=== PATIENT | male | born 1960 | race Caucasian/White ===

== ENCOUNTER 2022-09-06 18:59 | Inpatient (IN) | payer OTHER, SELFPAY ==
[2022-09-06 19:08] VITALS: BP 132/77; PULSE 103; RESP 20; TEMP 36.2; O2SAT 97; BMI 38.0
--- NOTE | 2022-09-06 19:38 | XRR_ITS ---
PROCEDURE INFORMATION: Exam: XR Chest Exam date and time: 09/06/2022 8:26 PM Age: 62 years old Clinical indication: Other: General weakness TECHNIQUE: Imaging protocol: Radiologic exam of the chest. Views: 1 view. COMPARISON: No relevant prior studies available. FINDINGS: Lungs: Unremarkable. No consolidation. Pleural spaces: Unremarkable. No pleural effusion. No pneumothorax. Heart/Mediastinum: Unremarkable. No cardiomegaly. Bones/joints: Unremarkable. XR/XR chest 1V portable [id number] IMPRESSION: No acute findings.
--- NOTE | 2022-09-06 20:14 | CTR_ITS ---
PROCEDURE INFORMATION: Exam: CT Lumbar Spine With Contrast Exam date and time: 09/06/2022 9:29 PM Age: 62 years old Clinical indication: Numbness; Patient HX: C/O low back pain with bilateral lower ext. Weakness. TECHNIQUE: Imaging protocol: Computed tomography of the lumbar spine with contrast. Radiation optimization: All CT scans at this facility use at least one of these dose optimization techniques: automated exposure control; mA and/or kV adjustment per patient size (includes targeted exams where dose is matched to clinical indication); or iterative reconstruction. Contrast material: OMNI 350; Contrast volume: 100 ml; Contrast route: INTRAVENOUS (IV); COMPARISON: CR XR lumbar spine 2-3V* [id number] 09/02/2022 12:02 PM RADIATION DOSE METRICS: Total DLP (mGy-cm): 1310.56 FINDINGS: Bones/joints: L4 vertebral body subtle lucent bony lesions suspected, consider further evaluation with a MRI or nuclear medicine bone scan to assess for an underlying bony lesion, finding best seen series 8, image 43. L1-L2: No significant disc protrusion. No severe spinal canal stenosis. No significant neural foraminal narrowing. L2-L3: No significant disc protrusion. No severe spinal canal stenosis. No significant neural foraminal narrowing. L3-L4: L3-L4 broad-based disc bulge with severe spinal canal and moderate bilateral foraminal. L4-L5: L4-L5 broad-based disc bulge with severe spinal canal and moderate bilateral foraminal narrowing. L5-S1: L5/S1 grade 1 retrolisthesis of L5 relative to S1 of 6 mm with a broad-based disc bulge resulting in mild spinal canal and moderate bilateral foraminal narrowing. Soft tissues: Unremarkable. CT/CT lumbar spine w con [id number] IMPRESSION: 1. L4 vertebral body subtle lucent bony lesions suspected, consider further evaluation with a MRI or nuclear medicine bone scan to assess for an underlying bony lesion, finding best seen series 8, image 43. 2. L3-L4 broad-based disc bulge with severe spinal canal and moderate bilateral foraminal. 3. L4-L5 broad-based disc bulge with severe spinal canal and moderate bilateral foraminal narrowing. 4. L5/S1 grade 1 retrolisthesis of L5 relative to S1 of 6 mm with a broad-based disc bulge resulting in mild spinal canal and moderate bilateral foraminal narrowing.
--- NOTE | 2022-09-06 20:16 | ED_ITS ---
HPI - Weakness General: Chief complaint: Weakness Stated complaint: Leg Pain\Kidneys Sent from [facility] Time Seen by Provider: 09/06/22 19:38 Source: patient Mode of arrival: ambulatory Limitations: no limitations History of Present Illness: 62-year-old male states that he has been having some muscle spasms right lower back over the last 4 to 5 days he states he was prescribed muscle relaxers is not sure what most flexors the last 3 to 4 days he states that over the last 4 days he has had progression all weakness of his lower extremities he states he is having a very hard time ambulating today due to that weakness he denies any decreased sensation denies any injuries denies any severe back pain denies any fevers. Associated symptoms: Denies chest pain, chills, dysuria, easy bruising, fever(s), headache(s), nausea or vomiting Review of Systems Const: Denies: fever(s), chills, body aches or change in appetite Eyes: Denies: blurry vision or eye discomfort ENMT: Denies: throat pain or dental pain Card: Denies: chest pain Resp: Denies: dyspnea GI: Denies: abdominal pain, nausea, vomiting or diarrhea : Denies: dysuria Musc: Reports: muscle weakness Skin/Breast: Denies: rash Neuro: Denies: headache(s) Psych: Denies: depression González/Lymph: Denies: easy bruising All/Imm: Denies: urticaria PFSH ED PFSH: Medical History (Updated 09/07/22 @ 01:30 by Declan Holt MD) Diabetes Social History (Updated 09/06/22 @ 20:17 by Declan Holt MD) Smoking and tobacco status: never smoked Alcohol intake: never Substance/Drug Use: never Physical Exam Const: COMMON NORMALS: no acute distress, patient oriented x3 and healthy appearing HENMT: COMMON NORMALS: normocephalic and atraumatic HEAD & SCALP: normocephalic and atraumatic Eye: COMMON NORMALS: Equal, round and reactive pupils present and EOMs intact bilaterally PUPIL: Yes Equal, round and reactive pupils present Neck/C-Spine: COMMON NORMALS: full ROM and supple Chest: COMMONS NORMALS: normal inspection of the chest and normal palpation of entire chest wall Resp: COMMON NORMALS: normal respiratory effort, No retractions, No use of accessory muscles and clear to auscultation bilaterally AUSCULTATION: clear to auscultation bilaterally Cardio: COMMON NORMALS: regular rate, regular rhythm and No murmurs present (Cardio) RATE: regular rate RHYTHM: regular rhythm GI: COMMON NORMALS: Normal to inspection, nondistended, normoactive bowel sounds present, Soft to palpation, non-tender and no masses PALPATION: Yes Soft to palpation : COMMON NORMALS: Yes no CVA tenderness BLADDER/KIDNEY EXAM: Yes no CVA tenderness Back/Pelvis: COMMON NORMALS: no CVA tenderness and thoracic and lumbar spine normal to inspection Extremity: COMMON NORMALS: normal to inspection and full ROM Neuro: COMMON NORMALS: patient oriented x3 OTHER: Decrease ankle jerk and patellar reflexes bilaterally he is having difficulty walking due to weakness as well Psych: COMMON NORMALS: mental status grossly normal, Normal thought process present and cooperative THOUGHT PROCESS: Normal thought process present Skin: COMMON NORMALS: no rashes or lesions noted and no wounds GENERAL SKIN EXAM: no rashes or lesions noted Course Vital Signs: Vital signs: Vital Signs Temperature 97.2 F L 09/06/22 19:08 Pulse Rate 121 H 09/06/22 21:23 Respiratory Rate 20 H 09/06/22 19:08 Blood Pressure 133/99 09/06/22 21:23 Pulse Oximetry 98 09/06/22 21:23 Oxygen Delivery Me thod 09/06/22 21:23 Oxygen Flow Rate 2 09/06/22 21:23 MDM - Weakness Medical Decision Making Patient presents here with bilateral lower extremity weakness he is having some difficulty walking does have decreased reflexes well MRI of his T and L-spine showed no acute cord compression 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 Lab Data 09/06/22 20:20 09/06/22 20:20 Radiology Impressions Chest X-Ray 09/06/22 19:38 IMPRESSION: No acute findings. Lumbar Spine CT 09/06/22 20:14 IMPRESSION: 1. L4 vertebral body subtle lucent bony lesions suspected, consider further evaluation with a MRI or nuclear medicine bone scan to assess for an underlying bony lesion, finding best seen series 8, image 43. 2. L3-L4 broad-based disc bulge with severe spinal canal and moderate bilateral foraminal. 3. L4-L5 broad-based disc bulge with severe spinal canal and moderate bilateral foraminal narrowing. 4. L5/S1 grade 1 retrolisthesis of L5 relative to S1 of 6 mm with a broad-based disc bulge resulting in mild spinal canal and moderate bilateral foraminal narrowing. Lumbar Spine MRI 09/06/22 22:00 IMPRESSION: Marked spinal canal narrowing at L3-L4 due to degenerative changes. Small chronic appearing central disc protrusion at L5-S1 contacts left S1 nerve root at its exit from thecal sac. Hemangioma of L4 vertebral body. Thoracic Spine MRI 09/06/22 22:00 IMPRESSION: No spinal canal compromise in thoracic spine. Canal narrowing from chronic factors is suggested in the upper cervical spine and may be marked but is not fully evaluated on this exam. Laboratory Results WBC 8.8 10^3/uL (4.0-10.0) 09/06/22 20:20 RBC 5.66 10^6/uL (4.1-5.3) H 09/06/22 20:20 Hgb 15.8 g/dL (11.7-16.6) 09/06/22 20:20 Hct 48.1 % (42.0-52.0) 09/06/22 20:20 MCV 85.0 fl (80-94) 09/06/22 20:20 MCH 27.9 pg (28.0-34.0) L 09/06/22 20:20 MCHC 32.8 g/dL (30.0-36.0) 09/06/22 20:20 RDW 13.1 % (12.1-15.1) 09/06/22 20:20 Plt Count 303 10^3/cmm (130-400) 09/06/22 20:20 MPV 10.2 fL (7.4-10.4) 09/06/22 20:20 Neut % (Auto) 64.1 % 09/06/22 20:20 Lymph % (Auto) 26.1 % 09/06/22 20:20 [place] % (Auto) 8.1 % 09/06/22 20:20 Eos % (Auto) 0.6 % 09/06/22 20:20 Baso % (Auto) 0.8 % 09/06/22 20:20 Neut # (Auto) 5.62 10^3/uL (1.8-7.7) 09/06/22 20:20 Lymph # (Auto) 2.3 10^3/uL (0.8-4.8) 09/06/22 20:20 [place] # (Auto) 0.7 10^3/uL (0.2-0.9) 09/06/22 20:20 Eos # (Auto) 0.1 10^3/uL (0.0-0.8) 09/06/22 20:20 Baso # (Auto) 0.1 10^3/uL (0.0-0.1) 09/06/22 20:20 Nucleated RBC % (auto) 0 % 09/06/22 20:20 Nucleated RBCs # 0.0 /100WBC 09/06/22 20:20 ESR 11 mm/hr (0-10) H 09/06/22 20:20 PT 13.00 SECONDS (12.1-14.9) 09/06/22 20:20 INR 0.95 (0.8-1.2) 09/06/22 20:20 Sodium 137 mmol/L (136-145) 09/06/22 20:20 Potassium 4.5 mmol/L (3.5-5.1) 09/06/22 20:20 Chloride 97 mmol/L (98-107) L 09/06/22 20:20 Carbon Dioxide 25 mmol/L (22-29) 09/06/22 20:20 Anion Gap 19.5 (5-19) H 09/06/22 20:20 BUN 16 mg/dL (8-23) 09/06/22 20:20 Creatinine 0.7 mg/dL (0.7-1.2) 09/06/22 20:20 GFR Calculation 115.0 mL/min (90-130) 09/06/22 20:20 Glucose 296 mg/dL (65-115) H 09/06/22 20:20 Calculated Osmolality 296 mOsm/kg (285-295) H 09/06/22 20:20 Calcium 10.5 mg/dL (8.5-10.5) 09/06/22 20:20 Magnesium 2.0 mg/dL (1.7-2.3) 09/06/22 20:20 Total Bilirubin 0.9 mg/dL (0.15-1.2) 09/06/22 20:20 AST 18 U/L (0-40) 09/06/22 20:20 ALT 21 U/L (0-41) 09/06/22 20:20 Alkaline Phosphatase 121 U/L (40-130) 09/06/22 20:20 C-Reactive Protein 3.0 mg/L (0.0-4.9) 09/06/22 20:20 NT-Pro-B Natriuret Pep 198 pg/mL (0-125) H 09/06/22 20:20 Total Protein 8.1 g/dL (6.6-8.7) 09/06/22 20:20 Albumin 4.7 g/dL (3.5-5.2) 09/06/22 20:20 Globulin 3.4 g/dL (1.3-4.6) 09/06/22 20:20 Lipase 33 U/L (13-60) 09/06/22 20:20 TSH 3.81 uIU/mL (0.27-4.20) 09/06/22 20:20 Urine Color Yellow (Yellow) 09/06/22 22:10 Urine Appearance Clear (CLEAR) 09/06/22 22:10 Urine pH 5 (5-7) 09/06/22 22:10 Ur Specific [place] 1.015 (1.005-1.030) 09/06/22 22:10 Urine Protein 1+ (Negative) H 09/06/22 22:10 Urine Glucose (UA) 4+ (Normal) H 09/06/22 22:10 Urine Ketones 1+ (Negative) H 09/06/22 22:10 Urine Blood Neg (Negative) 09/06/22 22:10 Urine Nitrate Negative (Negative) 09/06/22 22:10 Urine Bilirubin Neg (Negative) 09/06/22 22:10 Urine Urobilinogen Norm mg/dL (Negative) 09/06/22 22:10 Ur Leukocyte Esterase Negative (Negative) 09/06/22 22:10 Urine RBC 0-4 /hpf (0-2) H 09/06/22 22:10 Urine WBC 0-4 /hpf (0-5) H 09/06/22 22:10 Ur Squamous Epith Cells 0-4 /hpf (0-5) H 09/06/22 22:10 Ur Transition Epith Cell 0-4 /hpf 09/06/22 22:10 Amorphous Sediment 1+ /hpf 09/06/22 22:10 Urine Bacteria None /hpf (NONE) 09/06/22 22:10 Hyaline Casts 0-4 /lpf H 09/06/22 22:10 Urine Mucus 1+ /hpf 09/06/22 22:10 EKG Data EKG 1: I personally reviewed and interpreted this EKG as follows: EKG interpretation date: 09/06/22 EKG interpretation time: 21:05 Interpretation: nsr hr [address] or t wave abnormalities qrs 78 qtc 414 Discharge Plan Discharge Patient Disposition: Admitted As Inpatient Clinical Impression: Bilateral leg weakness Coding Level of Care Code ED Sulfonation Equipment Operator for Chg Fwd Exam Comprehensive
[2022-09-06 20:38] LABS: Basophils # 0.1 10^3/uL (0.0-0.1); Basophils % 0.8 %; Eosinophils # 0.1 10^3/uL (0.0-0.8); Eosinophils % 0.6 %; Hematocrit 48.1 % (42.0-52.0); Hemoglobin 15.8 g/dL (11.7-16.6); Lymphocytes # 2.3 10^3/uL (0.8-4.8); Lymphocytes % 26.1 %; Mean Corpuscular HGB Conc 32.8 g/dL (30.0-36.0); Mean Corpuscular Hemoglobin 27.9 pg (28.0-34.0); Mean Platelet Volume 10.2 fL (7.4-10.4); Monocytes # 0.7 10^3/uL (0.2-0.9); Monocytes % 8.1 %; Neutrophils # 5.62 10^3/uL (1.8-7.7); Neutrophils % 64.1 %; Nucleated Red Blood Cells % 0 %; Platelet Count 303 10^3/cmm (130-400); Red Blood Count 5.66 10^6/uL (4.1-5.3); Red Cell Distribution Width 13.1 % (12.1-15.1); White Blood Count 8.8 10^3/uL (4.0-10.0)
[2022-09-06 20:52] LABS: INR 0.95 (0.8-1.2)
--- NOTE | 2022-09-06 21:05 | ECG_ITS ---
[facility] Test Date: 2022-09-06 Pat Name: Narayan Nicholas Department: Room: Gender: Male [employer]er: : 1960 Requested By: Declan Holt Order Number: [id number] Benton MD: Andrés Hendricks M.D. Measurements Intervals [place] Rate: 89 P: 57 SD: 173 QRS: -27 QRSD: 78 T: 102 QT: 367 QTc: 448 Interpretive Statements SINUS RHYTHM INFERIOR MYOCARDIAL INFARCTION , PROBABLY OLD [40+ ms Q WAVE AND/OR ST/T ABNORMALITY IN II/aVF] No previous ECG available for comparison Electronically Signed On 09-06-2022 21:35:23 HEAD NURSE by Andrés Hendricks M.D. [id number]
[2022-09-06 21:14] LABS: Alanine Aminotransferase 21 U/L (0-41); Albumin Level 4.7 g/dL (3.5-5.2); Alkaline Phosphatase 121 U/L (40-130); Anion Gap 19.5 (5-19); Aspartate Amino Transferase 18 U/L (0-40); Blood Urea Nitrogen 16 mg/dL (8-23); Calcium 10.5 mg/dL (8.5-10.5); Carbon Dioxide 25 mmol/L (22-29); Chloride 97 mmol/L (98-107); Globulin 3.4 g/dL (1.3-4.6); Glucose 296 mg/dL (65-115); Lipase 33 U/L (13-60); NT Pro B Type Natriuretic Pept 198 pg/mL (0-125); Osmolality Calculated 296 mOsm/kg (285-295); Potassium 4.5 mmol/L (3.5-5.1); Sodium 137 mmol/L (136-145); Thyroid Stimulating Hormone 3.81 uIU/mL (0.27-4.20); Total Bilirubin 0.9 mg/dL (0.15-1.2); Total Protein 8.1 g/dL (6.6-8.7)
[2022-09-06 21:18] LABS: Erythrocyte Sedimentation Rate 11 mm/hr (0-10)
[2022-09-06] MEDS: iohexol 350 mg/mL 500 mL Btl (per mL) IV (21:30)
--- NOTE | 2022-09-06 22:00 | MRR_ITS ---
PROCEDURE INFORMATION: Exam: MR Lumbar Spine Without and With Contrast. Exam date and time: 09/06/2022 11:15 PM Age: 62 years old Clinical indication: Low back pain; Additional info: Leg weakness TECHNIQUE: Imaging protocol: Magnetic resonance imaging of the lumbar spine without and with contrast. Contrast material: MULTIHANCE; Contrast volume: 20 ml; Contrast route: INTRAVENOUS (IV); COMPARISON: CT lumbar spine w con [id number] 09/06/2022 9:29 PM FINDINGS: Bones/joints: Diffuse disc bulge and posterior element degenerative changes result in marked spinal canal narrowing at L3-L4. Mild narrowing of lower right neural foramen at L3-L4. Marrow signal hyperintensity at L4 vertebral body is most consistent with hemangioma. Small chronic appearing central disc protrusion suggested at L5-S1; this finding contacts the left S1 nerve root. Mild narrowing of lower right L5-S1 neural foramen. Remaining levels show no significant spinal canal or neural foraminal narrowing. Spinal cord: Visualized cord, conus medullaris and cauda equina are unremarkable without compression. Soft tissues: Unremarkable. MR/MR lumbar spine wo/w con [id number] IMPRESSION: Marked spinal canal narrowing at L3-L4 due to degenerative changes. Small chronic appearing central disc protrusion at L5-S1 contacts left S1 nerve root at its exit from thecal sac. Hemangioma of L4 vertebral body.
--- NOTE | 2022-09-06 22:00 | MRR_ITS ---
PROCEDURE INFORMATION: Exam: MR Thoracic Spine Without Contrast Exam date and time: 09/06/2022 11:31 PM Age: 62 years old Clinical indication: Pain in thoracic spine; Additional info: Leg weakness TECHNIQUE: Imaging protocol: Magnetic resonance imaging of the thoracic spine without contrast. COMPARISON: MR lumbar spine wo/w con [id number] 09/06/2022 11:15 PM FINDINGS: Bones/joints: Spinal canal narrowing relating to chronic factors suggested within cervical spine at C3-C4 and C4-C5 is not fully evaluated on this exam but may be marked. Thoracic spine shows no significant spinal canal narrowing. Spinal cord caliber and signal are normal. No significant disc abnormalities. No suspicious marrow signal abnormalities. Spinal cord: See Bones/joints finding. Soft tissues: Unremarkable. MR/MR thoracic spin wo con* [id number] IMPRESSION: No spinal canal compromise in thoracic spine. Canal narrowing from chronic factors is suggested in the upper cervical spine and may be marked but is not fully evaluated on this exam.
[2022-09-06 22:58] LABS: Add Urine Microscopic? YES; Bilirubin Urine Neg (Negative); Blood Urine Neg (Negative); Glucose Urine UA 4+ (Normal); Ketones Urine 1+ (Negative); Leukocyte Esterase Urine Negative (Negative); Nitrate Urine Negative (Negative); Protein Urine 1+ (Negative); Specific Gravity, Urine 1.015 (1.005-1.030); Urine Appearance Clear (CLEAR); Urine Color Yellow (Yellow); Urobilinogen Urine Norm (Negative); pH Urine 5 (5-7)
[2022-09-06 22:59] LABS: Add Urine Culture? No; Amorphous Sediment Urine 1+ /hpf; Hyaline Casts Urine 0-4 /lpf; Mucus Urine 1+ /hpf; RBC Urine 0-4 /hpf (0-2); Squamous Epithelial Cell Urine 0-4 /hpf (0-5); Transitional Epi Cells Urine 0-4 /hpf; WBC Urine 0-4 /hpf (0-5)
[2022-09-07] VITALS (12 sets, daily range): BP systolic 115–163; BP diastolic 69–93; PULSE 91–95; RESP 16–20; TEMP 36.4–36.5; O2SAT 93–99; BMI 38.0
--- NOTE | 2022-09-07 02:22 | P.HP_ITS ---
Providers/Chief Complaint Admitting Physician: Joe Delaney MD Primary Care Provider: Jerrica Velarde Chief Complaint: Leg Pain\Kidneys Sent from [facility] History of Present Illness Narayan Nicholas is a 62 year old male with a past medical history of diabetic peripheral neuropathy, [id number] type 2 diabetes mellitus, currently not on any medications, who presents [facility] for bilateral lower extremity weakness. Patient tells me that he has type 2 diabetes mellitus, he has not taken glipizide Ozempic and metformin in a long time due to adverse side effects, he checks his blood sugars he tells me that honestly that they have been in the 200s to 300s, he does have diabetic peripheral neuropathy, no history of CAD no history of strokes, no history of COPD. He tells me that roughly 3 weeks ago he fell on his back, and since then he has had some lower back pain, but on Monday the pain became much more severe so he presented to [facility], and he was given medications which sound like steroids, to help with the pain. However he tells me that starting immediately on Monday he started to notice that he had weakness in both his feet, trouble coordinating, which progressively got worse and was ascending from his feet, to his calves, so much so that he had trouble walking, trouble coordinating, high risk of falls. Denies any shortness of breath, no fevers, no chills, no recent illness, he did have COVID back in December. Currently he is telling me that he has loss of strength in both his feet, and his lower legs, he cannot walk, he has trouble coordinating and this is just suddenly abnormal as he is fairly functional. Currently he denies any low back pain radiating to his lower back, no sciatic related pain, he chronically has paresthesias and numbness of both his feet this is from his diabetic peripheral neuropathy. However he did report that in the last few days his neuropathy has worsened and he has more numbness, his big concern is I cannot walk anymore, he is tachycardic, but no lightheadedness, dizziness, no chest pain Review of Systems Const: Denies: fever(s), chills, fatigue or malaise Eyes: Denies: change in vision or blurry vision ENMT: Denies: nasal congestion Card: Denies: chest pain or palpitations Resp: Denies: dyspnea, productive cough, non-productive cough or wheezing GI: Denies: abdominal pain, nausea, vomiting, hematemesis, diarrhea, constipation, hematochezia or melena : Denies: flank pain, difficulty urinating, dysuria or urinary frequency Musc: Denies: neck pain or back pain Skin/Breast: Denies: rash Neuro: Reports: numbness in extremities, weakness in extremities and difficulty walking; Denies: headache(s), dizziness, vertigo, confusion, difficulty communicating thoughts, seizure-like activity or involuntary movements Psych: Denies: anxiety or depression Endo: Denies: polyuria or polydipsia PFSH Acute PFSH: Medical History (Updated 09/07/22 @ 02:33 by Joe Delaney MD) Diabetes Surgical History (Updated 09/07/22 @ 02:28 by Joe Delaney MD) No pertinent past surgical history Family History (Updated 09/07/22 @ 02:28 by Joe Delaney MD) Other Diabetes Social History (Updated 09/06/22 @ 20:17 by Declan Holt MD) Smoking and tobacco status: never smoked Alcohol intake: never Substance/Drug Use: never Vitals/I&O/Wt Last Vital Signs Temp 97.2 F L 09/06/22 19:08 Pulse 121 H 09/06/22 21:23 Resp 20 H 09/06/22 19:08 BP 133/99 09/06/22 21:23 Pulse Ox 98 09/06/22 21:23 O2 Del Method 09/06/22 21:23 O2 Flow Rate 2 09/06/22 21:23 Weight last 48 hrs Weight 127.006 kg Physical Exam Const: COMMON NORMALS: no acute distress and patient oriented x3 HENMT: COMMON NORMALS: normocephalic HEAD & SCALP: normocephalic Eye: COMMON NORMALS: Equal, round and reactive pupils present and EOMs intact bilaterally Neck/C-Spine: COMMON NORMALS: no JVD Resp: COMMON NORMALS: normal respiratory effort, No retractions, No use of accessory muscles and clear to auscultation bilaterally AUSCULTATION: clear to auscultation bilaterally Cardio: COMMON NORMALS: no JVD, regular rate, regular rhythm, S1 normal heart sound present and S2 normal heart sound present RATE: regular rate RHYTHM: regular rhythm HEART SOUNDS: S1 normal heart sound present and S2 normal heart sound present GI: COMMON NORMALS: Normal to inspection, nondistended, normoactive bowel sounds present, Soft to palpation, non-tender, No hepatosplenomegaly present, no masses and no bruits PALPATION: Yes Soft to palpation and Yes No hepatosplenomegaly present Extremity: COMMON NORMALS: no calf tenderness and no pedal edema OTHER: On exam patient, right foot and left foot, strength significantly diminished, 2 out of 5, trouble coordinating, ankle jerk reflex not present, bilateral knee jerk reflex not present, bilateral thumb and elbow jerk reflexes present, no trouble breathing Neuro: COMMON NORMALS: patient oriented x3, CN's II-XII intact bilaterally and moves all extremities Psych: COMMON NORMALS: mental status grossly normal Data 09/06/22 20:20 09/06/22 20:20 A&P Assessment and plan (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 L4 vertebral body subtle lucent bony lesions suspected, consider further evaluation with a MRI or nuclear medicine bone scan to assess for an underlying bony lesion, finding best seen series 8, image 43. 2. L3-L4 broad-based disc bulge with severe spinal canal and moderate bilateral foraminal. 3. L4-L5 broad-based disc bulge with severe spinal canal and moderate bilateral foraminal narrowing. 4. L5/S1 grade 1 retrolisthesis of L5 relative to S1 of 6 mm with a broad-based disc bulge resulting in mild spinal canal and moderate bilateral foraminal narrowing. mri lumbar spine Marked spinal canal narrowing at L3-L4 due to degenerative changes. Small chronic appearing central disc protrusion at L5-S1 contacts left S1 nerve root at its exit from thecal sac.? Hemangioma of L4 vertebral body. mri thoracic spine No spinal canal compromise in thoracic spine. Canal narrowing from chronic factors is suggested in the upper cervical spine and may be marked but is not fully evaluated on this exam. -Certainly patient is lumbar disc disease could be playing a role however given the rapidly progressive features, inability to walk, highly suspicious Plan -Given the rapidly progressive features I would recommend to start IVIG immediately -However I was informed by our pharmacy that we do not have more than 20 gm of IVIG that includes Octagam and guamanix, and they are not exactly sure when ready to get another shipment -We cannot delay treatment, so I recommended ER provider for patient to be transferred to tertiary level center -If he is here until early a.m., we can find out when we can get another shipment if transfer is delayed -We will continue to monitor him closely in the emergency room -CSF lumbar puncture also ordered with CSF studies if he is here, antibodies ordered -I started him on a low-dose sliding scale -A1c ordered -Full code -SCDs for DVT prophylaxis Lovenox currently on hold for potential CSF sampling Attestations Medical Necessity Statement*: Patient requires hospitalization for Guillain- Buchanan? 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
[2022-09-07] MEDS: pantoprazole 40 mg SDV IVP (03:41)
[2022-09-07 04:06] LABS: Estmated Average Glucose 286; Hemoglobin A1C 11.6 % (4.0-6.0)
--- NOTE | 2022-09-07 08:07 | PM.CONSULT ---
Providers/Reason For Consult Consulting Physician/Specialty*: Dr. Holt/ER Reason for Consult*: patrick steve Attending Physician: Glenn Rocha Primary Care Provider: Jerrica Velarde History of Present Illness History of Present Illness Narayan Nicholas is a 62 year old man who came to the emergency department yesterday evening complaining of muscle spasms in his back and weakness in his legs to the point that he was having gait impairment by the time he arrived. Dr. Holt found that he had no reflexes in his legs and no sensory disturbance so we agreed there was a high chance of acute a sending polyneuropathy and that the patient should be admitted. Dr. Holt obtained MRI of the lumbosacral spine and thoracic spine emergently after lumbar spine CT suggested possible lytic lesions. The lesion proved to be a hemangioma by MRI. There was severe spinal stenosis at L3-4. Operations Specialists film suggested significant cervical stenosis and I question slight increase in T2 intensity in the cervical cord at C3-4 and C4-5. Dr. Delaney started the patient on IVIG at 2:00 this morning. I reviewed his MRI of the lumbar spine from 09/06/2022. There is near complete occlusion of the spinal canal at L3-4. 3 weeks ago he fell off of his porch. He fell backward and landed on a 2 x 6 board stretched across his low back, slightly eccentric to the right. He immediately had trouble walking, pain in his low back and his legs. On Monday the he went to [facility] and was given nonsteroidals and muscle relaxers which she took faithfully but by the following day he was having trouble moving his legs. Yesterday his intention was to go back to [facility] to get something else for his weakness but he fell in the yard. He fell at 10:30 in the morning and fell on his right side and had to crawl to the car. He denies any pain in his neck. He is a healthy person except that he is diabetic. He was not aware of any numbness in his legs.. Review of Systems Narrative: He has not been sick lately. No fever chills or cough. 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 Const: Denies: fever(s), chills or change in weight Eyes: Denies: change in vision ENMT: Denies: throat pain or disequilibrium Card: Denies: chest pain, palpitations, irregular heart rhythm or lightheadedness Resp: Denies: dyspnea, productive cough or non-productive cough GI: Denies: abdominal pain, nausea or vomiting : Denies: difficulty urinating, urinary frequency, urinary urgency, urinary hesitancy or difficulty starting urination Musc: Reports: back pain and extremity pain; Denies: extremity swelling Skin/Breast: Denies: rash Neuro: Reports: weakness in extremities, difficulty walking and frequent falls; Denies: numbness in extremities, sensory changes or seizure-like activity Psych: Denies: depression González/Lymph: Denies: easy bruising All/Imm: Denies: urticaria Medications/Allergies Home Medications Medication Instructions Recorded Confirmed Last Taken Type chlorzoxazone 500 mg tablet 250 mg PO TID PRN Muscle Spasm 09/07/22 09/07/22 Unknown History meloxicam 15 mg tablet 15 mg PO DAILY 09/07/22 09/07/22 Unknown History Allergies Allergy/AdvReac Type Severity Reaction Status Date / Time No Known Allergies Allergy Verified 09/07/22 08:55 Current Medications Generic Name Dose Route Start Last Admin Trade Name Freq PRN Reason Stop Dose Admin Immune Globulin 500 mls @ 0 mls/hr 09/07/22 03:15 09/07/22 03:50 Privigen IV 38 mls/hr Q24H LAKESHA Administration Protocol As Directed Pantoprazole Sodium 40 mg 09/07/22 02:22 09/07/22 03:41 Pantoprazole 40 Mg Sdv IVP 40 mg Q24H LAKESHA Administration PFSH Acute PFSH: Medical History Diabetes Surgical History No pertinent past surgical history Family History Other Diabetes Social History Smoking and tobacco status: never smoked Alcohol intake: never Substance/Drug Use: never Vitals/I&O/Wt Last Vital Signs Temp 97.2 F L 09/06/22 19:08 Pulse 95 09/07/22 07:10 Resp 16 09/07/22 07:10 BP 143/75 09/07/22 07:10 Pulse Ox 96 09/07/22 07:10 O2 Del Method 09/07/22 04:26 O2 Flow Rate 2 09/06/22 21:23 Weight last 48 hrs Weight 280 lb Physical Exam Narrative: GENERAL: The patient was well-nourished with a healthy appearance and appropriately groomed. MENTAL STATUS: Orientation was full to 10 of 10 questions of orientation. Speech was fluent without word hesitation. No difficulty following a complex command. The affect was euthymic. CRANIAL NERVES: Visual acuity was intact to reading small print. Visual dixon were full to confrontation, direct and consensual. Extraocular movements were full without nystagmus. Both slow pursuit and saccadic eye movements were normal. PERRLA. Face was symmetric at rest and with grimace. Facial sensation was intact in all three distributions of the fifth cranial nerve bilaterally to touch. Hearing was intact to soft spoken voice.. Tongue and palate were midline at rest and with protrusion of the tongue and elevation of the palate. Shoulders were symmetric at rest and with shoulder shrug. MOTOR: He was able to lift each of the legs off the bed and give at least 4 - strength in psoas on both sides. Quadriceps 4 out of 5, hamstrings 4 out of 5, dorsiflexion of the ankles 4 out of 5, plantar flexion 5 out of 5. SENSATION: He cannot perceive vibration at all at the knees or ankles. Pin sensation absent in the toes and the lateral aspect of the feet, reduced to the knees on both sides. COORDINATION: He cannot perform [id number] because of weakness. There were no specific cerebellar signs DEEP TENDON REFLEXES: 2+ in the upper extremities, absent at the knees and ankles GAIT: He is a large person and I did not attempt to take him for a walk. HEENT: Normocephalic without dysmorphic features. Conjunctivae were not injected and sclerae were nonicteric. NECK: Carotid upstroke was strong bilaterally without bruits. The thyroid was not enlarged and there were no palpable lymph nodes. CHEST: Clear to auscultation. CARDIOVASCULAR: The heart sounds were normal without murmur or gallop. Regular rate and rhythm. Peripheral pulses were 2+ in the dorsalis pedis. EXTREMITIES: There was no edema or cyanosis. The skin was unremarkable. The spine exhibited normal thoracic kyphosis and normal lumbar lordosis without deformities. Data 09/06/22 20:20 09/06/22 20:20 A&P Assessment and plan (1) Lumbar spinal stenosis: This 62-year-old diabetic developed the sudden onset of bilateral lower extremity weakness after he fell and landed on his back. He has near spinal occlusion at L3-4 with compression of all of the nerve roots accounting for his lower extremity weakness and loss of reflexes. He probably also has chronic diabetic peripheral neuropathy contributing to his a sending sensory loss and possibly also contributing to his loss of reflexes. His neuropathy would not explain his sudden onset of weakness after his fall 3 weeks ago or progressive worsening since then. In the presence of his structural lesion there is no reason for IVIG. We should explore his cervical spine to make sure he does not have impending cord compression as he has a pretty tight lesion in the cervical spine on foundry supervisor films. His images were reviewed with Dr. Bah. I talked with Dr. Rocha. I would also recommend canceling lumbar puncture which could result in spinal block. There is no reason to pursue MATEO, the host of antibodies that were ordered by Dr. Elam including the antibody for atypical Guillian Doran ganglioside GQ 1B antibody. (2) Cervical spinal stenosis: (3) Peripheral neuropathy: (4) Type 2 diabetes mellitus: Consult Attestations Time Spent in Patient Care: 90 minutes Coding Level of Care Code Acute Code for [facility] Fwd Diagnoses Lumbar spinal stenosis M48.061 Cervical spinal stenosis M48.02 Peripheral neuropathy G62.9 Type 2 diabetes mellitus E11.9
--- NOTE | 2022-09-07 08:52 | PC.PHAR ---
pt states he takes care of his own medications-pt states he had only been taking the 2 medications entered-pt states he use to take ozempic,metformin,lisinopril,zocor and glipizide but states he dced the meds pt states not taken for a year or so
--- NOTE | 2022-09-07 10:12 | MRR_ITS ---
PROCEDURE INFORMATION: Exam: MR Cervical Spine Without Contrast Exam date and time: 09/07/2022 4:39 PM Age: 62 years old Clinical indication: Pain; Cervicalgia; Additional info: Leg weakness TECHNIQUE: Imaging protocol: Magnetic resonance imaging of the cervical spine without contrast. COMPARISON: MR thoracic spin wo con* [id number] 09/06/2022 11:31 PM FINDINGS: Bones/joints: Vertebrae are intact without evidence of fracture. Spinal cord: There is mildly increased T2 signal in the cervical cord at the C3 and C4 levels which may represent some some myelomalacia. C2-C3: No significant disc disease. No significant spinal stenosis. C3-C4: Moderate to severe narrowing of the disc space. Diffuse posterior bulging of the disc with disc osteophyte complex causing severe central canal stenosis narrowing the sagittal diameter of the canal to 6 mm and flattening the cord. There is severe bilateral foraminal narrowing. C4-C5: Diffuse posterior bulging of the disc and disc osteophyte complex causing severe central canal stenosis narrowing the sagittal diameter canal to less than 6 mm and causing cord flattening. Uncovertebral hypertrophy causes severe bilateral foraminal narrowing. There is also some posterior ligamentous hypertrophy at this level. C5-C6: No significant disc disease. No significant spinal stenosis. C6-C7: No significant disc disease. No significant spinal stenosis. C7-T1: No significant disc disease. No significant spinal stenosis. Soft tissues: Unremarkable. Vasculature: Expected flow voids in the vertebral arteries. MR/MR cervical spin wo con* [id number] IMPRESSION: Severe spinal stenosis at C3-C4 and C4-C5 with evidence of myelomalacia.
--- NOTE | 2022-09-07 10:26 | P.CONIM_ITS ---
Providers/Reason For Consult Consulting Physician/Specialty*: Orthospine Reason for Consult*: Leg weakness Attending Physician: Glenn Rocha Primary Care Provider: Jerrica Velarde History of Present Illness History of Present Illness Narayan Nicholas is a 62 year old male whose had progressive weakness in both legs or is been complaining of the inability to walk a block because of his leg weakness. This has been progressing to a point where 3 weeks ago he fell off of his porch.? Following the fall his symptoms have progressed immediately had trouble walking, pain in his low back and his legs.? On Monday09/02/22 he went to [facility] and was given nonsteroidals and muscle relaxers but next day he was having trouble moving his legs.? He fell again in his yard which prompted him to follow-up at [facility]. He was evaluated in room 257 with physical therapy present who is mobilizing him around the room with a walker. Patient states this weakness is progressively intensified following the latest falls. Denies loss of bowel or bladder control. Describes aching in his back with numbness and weakness down his legs. Standing makes it much worse leaning forward gives him some temporary relief. He describes both legs bothering him equally. Review of Systems Narrative: He has not been sick lately. No fever chills or cough. 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 Const: Denies: fever(s), chills or change in weight Eyes: Denies: change in vision ENMT: Denies: throat pain or disequilibrium Card: Denies: chest pain, palpitations, irregular heart rhythm or lightheadedness Resp: Denies: dyspnea, productive cough or non-productive cough GI: Denies: abdominal pain, nausea or vomiting : Denies: difficulty urinating, urinary frequency, urinary urgency, urinary hesitancy or difficulty starting urination Musc: Reports: back pain and extremity pain; Denies: extremity swelling Skin/Breast: Denies: rash Neuro: Reports: weakness in extremities, difficulty walking and frequent falls; Denies: numbness in extremities, sensory changes or seizure-like activity Psych: Denies: depression González/Lymph: Denies: easy bruising All/Imm: Denies: urticaria Medications/Allergies Home Medications Medication Instructions Recorded Confirmed Last Taken Type chlorzoxazone 500 mg tablet 250 mg PO TID PRN Muscle Spasm 09/07/22 09/07/22 Unknown History meloxicam 15 mg tablet 15 mg PO DAILY 09/07/22 09/07/22 Unknown History Allergies Allergy/AdvReac Type Severity Reaction Status Date / Time No Known Allergies Allergy Verified 09/07/22 08:55 Current Medications Generic Name Dose Route Start Last Admin Trade Name Freq PRN Reason Stop Dose Admin Pantoprazole Sodium 40 mg 09/07/22 02:22 09/07/22 03:41 Pantoprazole 40 Mg Sdv IVP 40 mg Q24H LAKESHA Administration PFSH Acute PFSH: Medical History Diabetes Surgical History No pertinent past surgical history Family History Other Diabetes Social History Smoking and tobacco status: never smoked Alcohol intake: never Substance/Drug Use: never Vitals/I&O/Wt Last Vital Signs Temp 97.5 F L 09/07/22 08:00 Pulse 92 09/07/22 08:00 Resp 18 09/07/22 08:00 BP 137/79 09/07/22 08:00 Pulse Ox 97 09/07/22 08:00 O2 Del Method 09/07/22 08:00 O2 Flow Rate 2 09/06/22 21:23 09/06/22 09/07/22 09/07/22 22:59 06:59 14:59 Intake Total 600 / 600 Balance 600 / 600 Weight last 48 hrs Weight 280 lb Physical Exam Narrative: Patient is alert orient x3 has a good general appearance normal mood and affect. Patient presents with antalgic gait seeing a walker. Demonstrates raising up onto tiptoes with difficulty but is unable to raise up on his heels consistent with a bilateral foot drop as his both EHLs are weak. Exhibits normal coordination and normal stability. Moderate palpatory and percussion pain throughout the paraspinous musculature of the thoracolumbar spine. No obvious curvature in the forward bend test. Examination reveals normal alignment, decreased functional range of motion of the thoracolumbar spine with Flexion to 45 degrees, extends 15 degrees, laterally bends 10 degrees symmetrically. Decreased sensation light touch down both lower extremities with 4/5 motor strength throughout all motor groups. No palpable pain over the SI joints bilaterally. Negative Abelardo and Fabere sign. Negative straight leg raise bilaterally. Skin is clear warm with normal sensation to light touch, calves are supple with no medial thigh tenderness, negative Homans' sign. No palpable lymphadenopathy bilaterally. Reflexes are absent and symmetric about the knees and Achilles. Dorsalis pedis and posterior tibial pulses are 1+. No palpable edema bilaterally. HENMT: COMMON NORMALS: normocephalic and atraumatic HEAD & SCALP: normocephalic and atraumatic Resp: COMMON NORMALS: normal respiratory effort Cardio: COMMON NORMALS: regular rate and regular rhythm RATE: regular rate RHYTHM: regular rhythm GI: COMMON NORMALS: Soft to palpation and non-tender PALPATION: Yes Soft to palpation : COMMON NORMALS: Yes no CVA tenderness BLADDER/KIDNEY EXAM: Yes no CVA tenderness Back/Pelvis: COMMON NORMALS: no CVA tenderness Psych: COMMON NORMALS: mental status grossly normal and cooperative Data 09/06/22 20:20 09/06/22 20:20 MRI: Radiologist's impression: CCESSION #: [id number] MR/MR thoracic spin wo con* [id number] IMPRESSION: No spinal canal compromise in thoracic spine. Canal narrowing from chronic factors is suggested in the upper cervical spine and may be marked but is not fully evaluated on this exam MR/MR lumbar spine wo/w con [id number] IMPRESSION: Marked spinal canal narrowing at L3-L4 due to degenerative changes. Small chronic appearing central disc protrusion at L5-S1 contacts left S1 nerve root at its exit from thecal sac.? Hemangioma of L4 vertebral body. A&P Assessment and plan (1) Spinal stenosis, lumbar region, with neurogenic claudication: Discussed treatment options at length with him which involve going to the pain clinic for injections versus surgical decompression. Given the nature of his bilateral foot drop and the progression of his stenosis and inability to walk distances we discussed surgical decompression. Provide him with 10 mg IV Decadron now and upon discharge, I will provide a prednisone taper dose as well as tramadol 50 mg 1 tablet every 4-6 hours as needed pain we will have him follow-up in our office outpatient to discuss further treatment options. (2) Bilateral foot-drop: Coding Level of Care Code New Pt Acute Code for Chg Fwd Patient Type New History Detailed Exam Detailed Diagnoses Spinal stenosis, lumbar region, with neurogenic claudication M48.062 Bilateral foot-drop M21.371; M21.372
[2022-09-07 11:48] LABS: Glucose Point of Care 324 mg/dL (70-110)
--- NOTE | 2022-09-07 12:19 | PC.OT ---
PER P.T. PATIENT INDEPENDENT IN/OUT OF BED. NO DEFICITS IN ADLs NOTED. NO FURTHER SKILLED OT REQUIRED AT THIS TIME. WILL AWAIT ORDERS IF STATUS CHANGE.
[2022-09-07] MEDS: dexamethasone 10 mg/mL INJ IVP (12:23)
[2022-09-07] MEDS: insulin lispro 100 unit/1 mL SUBCUT (12:23)
--- NOTE | 2022-09-07 15:34 | PM.DCS ---
Discharge Providers Date of Admission: 09/07/22 01:35 Date of Discharge: September 07, 2022 Attending Provider at Admission: Joe Delaney MD Attending Provider at Discharge: Glenn Rocha Primary Care Provider: Jerrica Velarde Diagnoses at Discharge Discharge Diagnosis (1) Spinal stenosis, lumbar region, with neurogenic claudication: Status: Acute (2) Bilateral foot-drop: Status: Acute Reason for Visit Reason for Visit: Leg Pain\Kidneys Sent from [facility] Course Hospital Course Pleasant 62-year-old gentleman with currently uncontrolled, untreated diabetes, previously on Ozempic, metformin, glipizide, Lantus, discontinued his medications after losing 60 pounds as was told that his diabetes would resolve, although states he still has diabetes. Also has diabetic neuropathy. He does state that his sugars have improved after weight loss. Due to quite distressing GI intolerance of medications he stopped his medications. 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 He has a [employer] nicole with the help of which he monitors his blood glucose. He had suffered a fall about 3 weeks ago on his back. He has continued having lower back pain and muscle spasms. Came to [facility] for assessment due to pain becoming more severe. States that he was prescribed steroid and NSAID, but his symptoms did not improve. He has been having difficulty ambulating. He purchased himself a walker. He subsequently fell again in the yard prompting him to go to ER. In ER he was found to have loss of reflexes. Acute ascending polyneuropathy was initially considered due to initial report of lack of sensory disturbance he underwent assessment by MRI thoracic and lumbar spine. Severe spinal stenosis at L3-4 noted. Additional findings were chronic, including hemangioma of L4. No spinal canal compromise in thoracic spine MRI. Canal narrowing chronic factors suggested in the upper cervical spine and may be marked but was not fully visualized. He was assessed by neurology. As discovering imaging and thoracic MRI suggested also cervical spinal stenosis, C-spine MRI is also requested for him. With structural lesion present with deficits secondary to spinal fusion at L3-4 with compression of nerve roots, as well as with underlying diabetic peripheral neuropathy, IVIG, lumbar puncture are canceled. He is ambulatory with a walker. He was also assessed by physical therapy. He initially did not want to stay for the cervical MRI, but discussion with him agreed to have the study done before leaving. He was assessed also by orthospine, with discussion of further treatment options. He was given a dose of Decadron. He will follow-up with orthopedics in office tomorrow for reassessment and additional dose of Decadron. Discussed with him regarding uncontrolled diabetes. Discussed with him risk of poor wound healing, risk of infection around her complications with uncontrolled diabetes, especially if he will be considering surgery. His A1c is 11.6. He agreed to initiation of insulin, discussed with him initiation of Lantus, as well as sliding scale lispro for now twice daily until he becomes more comfortable with it. Due to severe GI intolerance he prefers not to resume any hypoglycemics. Physical Exam Narrative: Sitting up in chair. Conversant, in good spirits. Const: COMMON NORMALS: patient oriented x3 and alert GENERAL APPEARANCE: cooperative ORIENTATION/CONSCIOUSNESS: Yes awake HENMT: COMMON NORMALS: oropharynx normal Neck/C-Spine: COMMON NORMALS: no JVD Resp: COMMON NORMALS: normal respiratory effort and clear to auscultation bilaterally AUSCULTATION: clear to auscultation bilaterally Cardio: COMMON NORMALS: no JVD, regular rhythm, S1 normal heart sound present, S2 normal heart sound present and No murmurs present (Cardio) RHYTHM: regular rhythm HEART SOUNDS: S1 normal heart sound present and S2 normal heart sound present GI: COMMON NORMALS: Normal to inspection, nondistended, normoactive bowel sounds present, Soft to palpation and non-tender PALPATION: Yes Soft to palpation Extremity: COMMON NORMALS: no joint enlargement and no pedal edema Neuro: COMMON NORMALS: patient oriented x3 and moves all extremities SENSORIUM/ORIENTATION: Yes alert Skin: COMMON NORMALS: no rashes or lesions noted GENERAL SKIN EXAM: no rashes or lesions noted Discharge Data Studies Completed and Pending Completed Studies During Hospitalization Category Date Time Status CT lumbar spine w con [id number] Stat Cat Scan 09/06/22 20:14 Completed XR chest 1V portable [id number] Stat Exams 09/06/22 19:38 Completed MR lumbar spine wo/w con [id number] Stat MRI 09/06/22 22:00 Completed MR thoracic spin wo con* [id number] Stat MRI 09/06/22 22:00 Completed Pending at discharge Category Date Time Status MATEO Profile Rheumatology Stat Lab 09/07/22 03:46 Stop Req Basic Metabolic Panel AM LABS Lab 09/08/22 04:00 Ordered Complete Blood Count w/Auto AM LABS Lab 09/08/22 04:00 Ordered Ganglioside GQ1b Antibody IgG Routine Lab 09/07/22 03:46 Stop Req MR cervical spin wo con* [id number] Routine MRI 09/07/22 10:12 Ordered Radiology Impressions Chest X-Ray 09/06/22 19:38 IMPRESSION: No acute findings. Lumbar Spine CT 09/06/22 20:14 IMPRESSION: 1. L4 vertebral body subtle lucent bony lesions suspected, consider further evaluation with a MRI or nuclear medicine bone scan to assess for an underlying bony lesion, finding best seen series 8, image 43. 2. L3-L4 broad-based disc bulge with severe spinal canal and moderate bilateral foraminal. 3. L4-L5 broad-based disc bulge with severe spinal canal and moderate bilateral foraminal narrowing. 4. L5/S1 grade 1 retrolisthesis of L5 relative to S1 of 6 mm with a broad-based disc bulge resulting in mild spinal canal and moderate bilateral foraminal narrowing. Lumbar Spine MRI 09/06/22 22:00 IMPRESSION: Marked spinal canal narrowing at L3-L4 due to degenerative changes. Small chronic appearing central disc protrusion at L5-S1 contacts left S1 nerve root at its exit from thecal sac. Hemangioma of L4 vertebral body. Thoracic Spine MRI 09/06/22 22:00 IMPRESSION: No spinal canal compromise in thoracic spine. Canal narrowing from chronic factors is suggested in the upper cervical spine and may be marked but is not fully evaluated on this exam. Laboratory Results WBC 8.8 10^3/uL (4.0-10.0) 09/06/22 20:20 RBC 5.66 10^6/uL (4.1-5.3) H 09/06/22 20:20 Hgb 15.8 g/dL (11.7-16.6) 09/06/22 20:20 Hct 48.1 % (42.0-52.0) 09/06/22 20:20 MCV 85.0 fl (80-94) 09/06/22 20:20 MCH 27.9 pg (28.0-34.0) L 09/06/22 20:20 MCHC 32.8 g/dL (30.0-36.0) 09/06/22 20:20 RDW 13.1 % (12.1-15.1) 09/06/22 20:20 Plt Count 303 10^3/cmm (130-400) 09/06/22 20:20 MPV 10.2 fL (7.4-10.4) 09/06/22 20:20 Neut % (Auto) 64.1 % 09/06/22 20:20 Lymph % (Auto) 26.1 % 09/06/22 20:20 [place] % (Auto) 8.1 % 09/06/22 20:20 Eos % (Auto) 0.6 % 09/06/22 20:20 Baso % (Auto) 0.8 % 09/06/22 20:20 Neut # (Auto) 5.62 10^3/uL (1.8-7.7) 09/06/22 20:20 Lymph # (Auto) 2.3 10^3/uL (0.8-4.8) 09/06/22 20:20 [place] # (Auto) 0.7 10^3/uL (0.2-0.9) 09/06/22 20:20 Eos # (Auto) 0.1 10^3/uL (0.0-0.8) 09/06/22 20:20 Baso # (Auto) 0.1 10^3/uL (0.0-0.1) 09/06/22 20:20 Nucleated RBC % (auto) 0 % 09/06/22 20:20 Nucleated RBCs # 0.0 /100WBC 09/06/22 20:20 ESR 11 mm/hr (0-10) H 09/06/22 20:20 PT 13.00 SECONDS (12.1-14.9) 09/06/22 20:20 INR 0.95 (0.8-1.2) 09/06/22 20:20 Sodium 137 mmol/L (136-145) 09/06/22 20:20 Potassium 4.5 mmol/L (3.5-5.1) 09/06/22 20:20 Chloride 97 mmol/L (98-107) L 09/06/22 20:20 Carbon Dioxide 25 mmol/L (22-29) 09/06/22 20:20 Anion Gap 19.5 (5-19) H 09/06/22 20:20 BUN 16 mg/dL (8-23) 09/06/22 20:20 Creatinine 0.7 mg/dL (0.7-1.2) 09/06/22 20:20 GFR Calculation 115.0 mL/min (90-130) 09/06/22 20:20 Glucose 296 mg/dL (65-115) H 09/06/22 20:20 POC Glucose 324 mg/dL (70-110) H 09/07/22 11:40 Estimat Average Glucose 286 09/07/22 03:46 Hemoglobin A1c 11.6 % (4.0-6.0) H 09/07/22 03:46 Calculated Osmolality 296 mOsm/kg (285-295) H 09/06/22 20:20 Calcium 10.5 mg/dL (8.5-10.5) 09/06/22 20:20 Magnesium 2.0 mg/dL (1.7-2.3) 09/06/22 20:20 Total Bilirubin 0.9 mg/dL (0.15-1.2) 09/06/22 20:20 AST 18 U/L (0-40) 09/06/22 20:20 ALT 21 U/L (0-41) 09/06/22 20:20 Alkaline Phosphatase 121 U/L (40-130) 09/06/22 20:20 C-Reactive Protein 3.0 mg/L (0.0-4.9) 09/06/22 20:20 NT-Pro-B Natriuret Pep 198 pg/mL (0-125) H 09/06/22 20:20 Total Protein 8.1 g/dL (6.6-8.7) 09/06/22 20:20 Albumin 4.7 g/dL (3.5-5.2) 09/06/22 20:20 Globulin 3.4 g/dL (1.3-4.6) 09/06/22 20:20 Lipase 33 U/L (13-60) 09/06/22 20:20 TSH 3.81 uIU/mL (0.27-4.20) 09/06/22 20:20 Urine Color Yellow (Yellow) 09/06/22 22:10 Urine Appearance Clear (CLEAR) 09/06/22 22:10 Urine pH 5 (5-7) 09/06/22 22:10 Ur Specific [place] 1.015 (1.005-1.030) 09/06/22 22:10 Urine Protein 1+ (Negative) H 09/06/22 22:10 Urine Glucose (UA) 4+ (Normal) H 09/06/22 22:10 Urine Ketones 1+ (Negative) H 09/06/22 22:10 Urine Blood Neg (Negative) 09/06/22 22:10 Urine Nitrate Negative (Negative) 09/06/22 22:10 Urine Bilirubin Neg (Negative) 09/06/22 22:10 Urine Urobilinogen Norm mg/dL (Negative) 09/06/22 22:10 Ur Leukocyte Esterase Negative (Negative) 09/06/22 22:10 Urine RBC 0-4 /hpf (0-2) H 09/06/22 22:10 Urine WBC 0-4 /hpf (0-5) H 09/06/22 22:10 Ur Squamous Epith Cells 0-4 /hpf (0-5) H 09/06/22 22:10 Ur Transition Epith Cell 0-4 /hpf 09/06/22 22:10 Amorphous Sediment 1+ /hpf 09/06/22 22:10 Urine Bacteria None /hpf (NONE) 09/06/22 22:10 Hyaline Casts 0-4 /lpf H 09/06/22 22:10 Urine Mucus 1+ /hpf 09/06/22 22:10 Vitals Last Vital Signs Temp 97.7 F 09/07/22 15:00 Pulse 93 09/07/22 15:00 Resp 18 09/07/22 15:00 BP 115/69 09/07/22 15:00 Pulse Ox 99 09/07/22 12:00 O2 Del Method 09/07/22 12:00 O2 Flow Rate 2 09/06/22 21:23 Discharge Plan Discharge Patient Disposition: Home Condition: Stable Prescriptions: New tramadol 50 mg Tablet 50 mg PO Q4H PRN (Reason: Moderate Pain) Qty: 30 0RF insulin glargine-yfgn 100 unit/mL (3 mL) insulin pen 20 unit SUBCUT QPM Qty: 15 3RF Humalog U-100 Insulin 100 unit/mL Solution See Rx Instructions .ROUTE .COMPLEX Qty: 10 0RF Rx Instructions: BID with meals Glucose: 141-180 - 2 units 181-220 - 3 221-260 - 4 261-300 - 5 301-350 - 6 351-400 - 7 >400 - 8 units Continued prednisone 20 mg tablet 20 mg PO DAILY Qty: 15 0RF Rx Instructions: 60mg on day 1,2,3 40mg on day 4,5 20mg on day 6,7 chlorzoxazone 500 mg tablet 250 mg PO TID PRN (Reason: Muscle Spasm) meloxicam 15 mg tablet 15 mg PO DAILY Discharge Orders: Discharge Order (Routine); Ordered 09/07/22 Ordered By: Glenn Rocha Referrals: Eliot Rothman DO [Physician] - 09/08/22 Jerrica Velarde PA [Primary Care Provider] - 09/14/22 1:15 pm Javier Aggarwal MD [Physician] - 1 week Discharge Diet: Diabetic Discharge Activity: Limit activity as instructed and Use walker/crutches as instructed Patient Instructions: Type 2 Diabetes, Diabetes and Diet, Insulin Glargine (By injection), Insulin Lispro (By injection), How to Give an Insulin Injection (GEN), What to Do if Your Blood Sugar is Low (GEN), Type 2 Diabetes Management for Adults (GEN), Opioid Safety Activity Restrictions/Additional Instructions: Activities as tolerated with a walker. Have him follow-up in the office on . Tramadol and prednisone taper dose was sent to the pharmacy in the hospital. Glucose/diabetes needs to be optimized before any potential surgery due to high risk of wound nonhealing, risk of infection. As discussed please continue your effort to establish with primary provider for further assessment Of spinal stenosis, foot drop, diabetes and neuropathy, as well as assessment preoperatively in case surgery is found to be needed. Continue to monitor your glucose at least 3 times a day. You are started on long-acting insulin as discussed as well as sliding scale insulin as discussed for now twice daily which may be escalated once he become more comfortable with it. In case your glucose is less than 100 in the morning, decrease insulin Lantus down to 10. If glucose continues to be elevated, above 150, continue to increase Lantus dose slowly in 2-3 unit increments per day, avoiding rapid increases. Interval glucoses less than 70, eat or drink sugary snack, recheck your glucose levels in 15-20 minutes. If glucose has not improved, eat further sugary snacks and call 911. If you feel unwell or faint call 911. Continue to use your freestyle nicole. Contact us in case you need a prescription for a glucometer. Discharge Attestations Time Spent in Discharge Care*: greater than 30 min Quality Metrics Clinical Quality Measures [ No reported AMI, CVA or VTE this stay] Coding Level of Care Code Acute [facility] note Diagnoses Spinal stenosis, lumbar region, with neurogenic claudication M48.062 Bilateral foot-drop M21.371; M21.372
[2022-09-07 16:31] LABS: Glucose Point of Care 265 mg/dL (70-110)
[2022-09-08 13:50] LABS: CENTROMERE B ANTIBODY <1.0 NEG AI (<1.0 NEG); JO-1 ANTIBODY <1.0 NEG AI (<1.0 NEG); RNP ANTIBODY 1.3 POS AI (<1.0 NEG); SCL-70 ANTIBODY <1.0 NEG AI (<1.0 NEG); SJOGREN'S ANTIBODY (SS-A) <1.0 NEG AI (<1.0 NEG); SM ANTIBODY <1.0 NEG AI (<1.0 NEG); SS-B <1.0 NEG AI (<1.0 NEG)
[2022-09-08 14:55] LABS: COMPLEMENT COMPONENT C3C 155 mg/dL (82-185); COMPLEMENT COMPONENT C4C 50 mg/dL (15-53)
[2022-09-08 16:35] LABS: ANA SCREEN, IFA NEGATIVE (NEGATIVE)
[2022-09-08 17:45] LABS: THYROID PEROXIDASE ANTIBODIES 1 IU/mL (<9)
[2022-09-09 13:10] LABS: COMPLEMENT, TOTAL (CH50) >60 U/mL (31-60)
[2022-09-10 13:55] LABS: DNA AB (DS) CRITHIDIA,IFA NEGATIVE (NEGATIVE)
[2022-09-14 21:15] LABS: Ganglioside GQ1b Antibody IgG <1:100 titer
== END 2022-09-07 17:41 | disposition home or self-care (01) | DRG 552 ==
LOC: ER 09-07 01:31 → MEDSURG 09-07 06:05
PROVIDERS: Admitting Provider Family Medicine; Emergency Provider Emergency Medicine; PCP Physician Assistant; Visit Provider Internal Medicine
DX: M48.062 Spinal stenosis, lumbar region with neurogenic claudication (principal); M21.372 Foot drop, left foot; M21.371 Foot drop, right foot; E11.65 Type 2 diabetes mellitus with hyperglycemia; E11.42 Type 2 diabetes mellitus with diabetic polyneuropathy; W18.30XA Fall on same level, unspecified, initial encounter; M48.02 Spinal stenosis, cervical region; Z98.1 Arthrodesis status; Z79.52 Long term (current) use of systemic steroids; D18.09 Hemangioma of other sites
CPT/HCPCS: 36416; 71045; 72132; 72141; 72146; 72158; 80053; 81001; 82962; 83036; 83520; 83690; 83735; 83880; 84443; 85025; 85610; 85651; 86140; 86160; 86162; 86235; 86255; 86376; 93005; 94664; 96372; 97161; 97530; 99285; C9113; J1100; J1459; J1815; Q9967

== ENCOUNTER → 2022-10-04 14:30 | Outpatient (BNVA) | payer OTHER, SELFPAY | PROVIDERS: PCP Physician Assistant; Visit Provider Physician Assistant | DX: M54.50 Low back pain, unspecified (principal) | CPT/HCPCS: 72110 ==

== ENCOUNTER 2022-10-04 17:18 | Outpatient (CLI) | payer OTHER, SELFPAY | END 2022-10-04 17:19 | disposition home or self-care (01) | LOC: SPT 17:19 | PROVIDERS: PCP Physician Assistant; Visit Provider Physician Assistant | DX: Z46.89 Encounter for fitting and adjustment of other specified devices (principal); M48.02 Spinal stenosis, cervical region; G99.2 Myelopathy in diseases classified elsewhere | CPT/HCPCS: 97760; L0172 ==

== ENCOUNTER 2022-10-21 11:34 | Inpatient (IN) | payer OTHER, SELFPAY ==
[2022-10-20 14:15] VITALS: BMI 32.5
--- NOTE | 2022-10-20 15:02 | ANES.PREANE2 ---
Pre-Anesthetic Assessment Height/Weight: Height 1.83 m Weight 108.862 kg Operation Date: 10/21/22 07:00 Proposed Procedures p Anterior Cervical Discectomy & Fusion w C4 corpectomy,C2-C6 posterior fusion w decompression. [id number],M48.02,G99.2(Not Applicable) - Eliot Felipa Rothman, DO s Cervical Posterior Fusion Posterior Cervical Fusion(Not Applicable) - Eliot H Lorna, DO s Cervical Decompression L3-4, L4-5(Not Applicable) - Eliot H Lorna, DO Familial anesthetic complications: none Was Beta Shaji taken within 24 hours: N/A Was Clonidine taken within 24 hours: N/A Social No alcohol and No tobacco Exam alert, oriented x 3, clear to auscultation bilaterally and regular rate & rhythm Airway Submandibular: within normal limits Cervical ROM: within normal limits Mallampati: Class II Dentition: caps CV/HEM Hypertension Metabolic Diabetes Mellitus and Hyperlipidemia Musc/skel Lower Back Pain, Osteoarthritis/DJD and Weakness Neuropsych Neuropathy Anesthetic Plan ASA status: 3 Anesthesia: General Other: A.line Medications/Allergies Home Medications Medication Instructions Recorded Confirmed Last Taken Type chlorzoxazone 500 mg tablet 250 mg PO TID PRN Muscle Spasm 09/07/22 10/20/22 Unknown History insulin glargine-yfgn 100 unit/mL 20 unit (0.2 mL) SUBCUT QPM #15 mL 09/07/22 10/20/22 Unknown Rx (3 mL) subcutaneous pen flash glucose scanning reader #1 ea 09/23/22 09/30/22 Unknown Rx (FreeStyle Ella 2 [place]) flash glucose sensor (FreeStyle #1 ea 09/23/22 09/30/22 Unknown Rx Ella 2 Sensor kit) CERVICAL COLLAR #1 ea 10/04/22 10/04/22 Unknown Rx tramadol 50 mg tablet 50 mg PO Q4H PRN Moderate Pain #30 10/11/22 10/20/22 Unknown Rx tabs insulin lispro 100 unit/mL See Rx Instructions .Route 10/14/22 10/20/22 Unknown Rx subcutaneous solution (Humalog .COMPLEX #10 mL U-100 Insulin) insulin syringe-needle U-100 0.3 #100 ea 10/14/22 Unknown Rx mL 31 gauge x 5/16 (BD Insulin Syringe Ultra-Fine) pen needle, diabetic 31 gauge x #100 ea 10/14/22 Unknown Rx 3/16 (Comfort EZ Pen [place]) Bone Growth Stimulator E0748 #1 ea 10/17/22 Unknown Rx intraoperative Neuromonitoring #1 ea 10/17/22 Unknown Rx dicyclomine 10 mg capsule 10 mg PO TID PRN Acid Reflux 10/20/22 10/20/22 Unknown History Allergies Allergy/AdvReac Type Severity Reaction Status Date / Time No Known Allergies Allergy Verified 10/20/22 14:10 [facility] Anesthesia Medical History Diabetes Surgical History No pertinent past surgical history Family History Other Diabetes Social History Smoking and tobacco status: never smoked Alcohol intake: never Data Anesthesia Cardiac Studies: No Data to Display
[2022-10-21] VITALS (14 sets, daily range): BP systolic 101–145; BP diastolic 52–91; PULSE 90–114; RESP 16–21; TEMP 36.3–37.2; O2SAT 90–98; BMI 32.5
[2022-10-21] MEDS: sodium chloride 0.9% 1,000 ML 30 ML IV (06:36)
--- NOTE | 2022-10-21 06:44 | W.PM.OPSUD ---
Surgery/Procedure H&P Update DATE OF PROCEDURE: October 21, 2022 DATE H&P PERFORMED: 10/04/22 H&P UPDATE INFORMATION: I have reviewed H&P completed within last 30 days, I have examined patient prior to procedure and No changes to prior documentation PREOP DIAGNOSIS: Cervical stenosis with myelopathy PLANNED PROCEDURE: Operation Date: 10/21/22 07:00 Proposed Procedures p Anterior Cervical Discectomy & Fusion w C4 corpectomy,C2-C6 posterior fusion w decompression. [id number],M48.02,G99.2(Not Applicable) - Eliot Rothman DO s Cervical Posterior Fusion Posterior Cervical Fusion(Not Applicable) - DO jaquan Ibarra Cervical Decompression L3-4, L4-5(Not Applicable) - Eliot Rothman DO
[2022-10-21] MEDS: ceFAZolin 2,000 MG in sodium chloride 0.9% (plus) 50 ML 100 MG IV ×3 (06:56→22:34)
[2022-10-21 06:59] LABS: Basophils # 0.1 10^3/uL (0.0-0.1); Basophils % 1.2 %; Eosinophils # 0.2 10^3/uL (0.0-0.8); Eosinophils % 3.2 %; Hematocrit 45.3 % (42.0-52.0); Hemoglobin 15.3 g/dL (11.7-16.6); Lymphocytes # 2.4 10^3/uL (0.8-4.8); Lymphocytes % 35.8 %; Mean Corpuscular HGB Conc 33.8 g/dL (30.0-36.0); Mean Corpuscular Hemoglobin 28.5 pg (28.0-34.0); Mean Corpuscular Volume 84.5 fl (80-94); Mean Platelet Volume 10.5 fL (7.4-10.4); Monocytes # 0.6 10^3/uL (0.2-0.9); Monocytes % 8.4 %; Neutrophils % 51.1 %; Nucleated Red Blood Cells % 0 %; Platelet Count 305 10^3/cmm (130-400); Red Blood Count 5.36 10^6/uL (4.1-5.3); Red Cell Distribution Width 13.2 % (12.1-15.1); White Blood Count 6.7 10^3/uL (4.0-10.0)
[2022-10-21 07:02] LABS: Anion Gap 15.9 (5-19); Blood Urea Nitrogen 12 mg/dL (8-23); Calcium 9.7 mg/dL (8.5-10.5); Carbon Dioxide 25 mmol/L (22-29); Chloride 101 mmol/L (98-107); Glomerular Filtration Rate 169.6 mL/min (90-130); Glucose 222 mg/dL (65-115); Osmolality Calculated 293 mOsm/kg (285-295); Potassium 3.9 mmol/L (3.5-5.1); Sodium 138 mmol/L (136-145)
[2022-10-21 07:12] LABS: Glucose Point of Care 207 mg/dL (70-110)
[2022-10-21] MEDS: lidocaine 2% Urojet 20 mL TOPICAL (07:36)
--- NOTE | 2022-10-21 08:17 | ANES.PAUD2 ---
Pre-Anesthetic Update Pre-Anesthetic Assessment: Date of Surgery/Procedure: 10/21/22 Preop Diagnosis: Cervical stenosis with myelopathy Proposed Procedure: Operation Date: 10/21/22 07:00 Proposed Procedures p Anterior Cervical Discectomy & Fusion w C4 corpectomy,C2-C6 posterior fusion w decompression. [id number],[id number],M48.02,G99.2(Not Applicable) - Eliot Rothman, DO s Cervical Posterior Fusion Posterior Cervical Fusion(Not Applicable) - Eliot Leo Caron, DO s Cervical Decompression L3-4, L4-5(Not Applicable) - Eliot Rothman, DO Any changes to Pre-Anesthetic Assessment?: No Last Intake: Intake Last Liquid Date 10/20/22 Last Liquid Time 17:30 Last Solid Date 10/20/22 Last Solid Time 17:30 Labs Last 48hrs: Short CBC 10/21/22 Range/Units 06:35 WBC 6.7 (4.0-10.0) 10^3/ uL Hgb 15.3 (11.7-16.6) g/dL Hct 45.3 (42.0-52.0) % MCV 84.5 (80-94) fl Plt Count 305 (130-400) 10^3/c mm Neut % (Auto) 51.1 % Neut # (Auto) 3.40 (1.8-7.7) 10^3/u L BMP 10/21/22 06:35 Sodium 138 Potassium 3.9 Chloride 101 Carbon Dioxide 25 BUN 12 Creatinine 0.5 L Glucose 222 H Calcium 9.7 Vitals: Temperature 97.4 F L 10/21/22 06:18 Temperature Source Temporal Artery S can 10/21/22 06:18 Pulse Rate 101 H 10/21/22 06:18 Respiratory Rate 18 10/21/22 06:18 Blood Pressure 142/91 10/21/22 06:18 Blood Pressure Bel n 108 10/21/22 06:18 Pulse Oximetry 98 10/21/22 06:18 Oxygen Delivery Me thod 10/21/22 06:20 Exam: Pre-Anes Outpt Exam: alert, oriented x 3, clear to auscultation bilaterally and regular rate & rhythm Cardiac Studies: No Data to Display
[2022-10-21] MEDS: lidocaine-epi 1% 20 mL INJ INJECTION (08:18)
[2022-10-21] MEDS: vancomycin 1,000 MG SDV 1000 MG INTRA-ARTI (08:18)
--- NOTE | 2022-10-21 10:51 | XR_ITS ---
WS: [id number] C-ARM RADIOGRAPHS CERVICAL SPINE; 5 IMAGES HISTORY: OR PICS COMPARISON: None available. Intraoperative imaging during cervical fusion and corpectomy. Limiting imaging submitted. The surgica l changes appear to be at C4-5. XR/XR cervical spine 3V* [id number] IMPRESSION: Intraoperative imaging during anterior cervical fusion and corpectomy.
--- NOTE | 2022-10-21 11:03 | PM.OP ---
Operative Report Date of procedure: October 21, 2022 Pre-op diagnosis: Preop Diagnosis Cervical stenosis with myelopathy Post-op diagnosis: same Procedure done: 1.? anterior discectomy C3/4 2.? Anterior diskectomy C4/5 3.? Corpectomy > 50% C4 4.? Insertion of corpectomy cage betwen C3 to C5 5.? Instrumentation with anterior plate from C3-5 6.? Use of allograft and Auto graft anterior 7.? C2-C6 posterior spine fusion 8. C2 to C6 instrumentation 9.? C3/4 laminectomy with partial facetectomies 10.? C4/5 laminectomy with partial facetectomies 11.? C5/6 Laminectomy with partial facetectomies 12.? use of computer navigation stereotactic for Spine 13.? use of autograft and allograft posterior Surgeon: Eliot Rothman Principal Consulting Engineer: Berry Shine Principal Consulting Engineer: The insurance sales assistant, Berry Shine, PAC was needed for his expertise under the microscope. He was important and necessary throughout the procedure to complete in a safe and timely manner. He assisted with patient positioning prepping and draping tissue retraction suctioning of the operative field protection of the dural sac and tissue closure Estimated blood loss (mL): 500 Procedure: 1.? anterior discectomy C3/4 2.? Anterior diskectomy C4/5 3.? Corpectomy > 50% C4 4.? Insertion of corpectomy cage betwen C3 to C5 5.? Instrumentation with anterior plate from C3-5 6.? Use of allograft and Auto graft anterior 7.? C2-C6 posterior spine fusion 8. C2 to C6 instrumentation 9.? C3/4 laminectomy with partial facetectomies 10.? C4/5 laminectomy with partial facetectomies 11.? C5/6 Laminectomy with partial facetectomies 12.? use of computer navigation stereotactic for Spine 13.? use of autograft and allograft posterior The patient was taken to the operating room, where he underwent general endotracheal anesthesia without complications. He was then positioned supine on the operating table, and all areas of impingement were well padded. The arms were carefully padded and tucked at his sides. A roll was placed between the shoulder blades.. An x-ray was done to determine the appropriate level for the skin incision. The entire neck was then sterilely prepped and draped in the usual fashion.? Neuromonitoring was attached prior to prepping. A transverse skin incision was made and carried down to the platysma muscle. This was then split in line with its fibers. Blunt dissection was carried down medial to the carotid sheath and lateral to the trachea and esophagus until the anterior cervical spine was visualized. A needle was placed into a disc and an x-ray was done to determine its location. The longus colli muscles were then elevated bilaterally with the electrocautery unit. Self-retaining retractors were placed deep to the longus colli muscle. ? A distraction pin was placed at C3 and distraction pin in C5. The levels were distractedwas from C3-C5.? An anterior discectomy was performed at C3/4 and C4-5.? This was done by using a high-speed bur to take down the spurs and then curved curette and then once the disc was taken down to the posterior longitudinal ligament and the Kerrison rongeurs and curved curettes were used to remove the larger ligaments of the dura was exposed.? And then this was done at theC3/4 andC4-5 disc space as well.? Completely opening up the disc space.? Then a high-speed bur was used to perform the corpectomy.? This was done by taking down the vertebral body both on the right left side as well as using a rongeur until it was taken down to the posterior longitudinal ligament.? And then a curved curette and Kerrison rongeur were used to take out the posterior longitudinal ligament out to the dura and this was taken down from C3-5 with the [place] pins distracting. Next attention was brought to measuring the size of the corpectomy cage.? Is measured to be 29.? This was a [place] corpectomy cage.? The cage was packed with autograft from the corpectomy as well as allograft which was the ostial amp bone graft.? The cage was then placed from C3-C5 and C-arm ensured there was in good position. The appropriate size anterior cervical locking plate was chosen and bent into gentle lordosis. Two screws were then placed into each of the vertebral bodies at C3 and C5. There was excellent purchase. A final x-ray was done confirming good position of the hardware and Cages. The locking screws were then applied, also with excellent purchase. Following a final copious irrigation, there was good hemostasis and no dural leaks. The carotid pulse was strong. The wounds were then closed in layers using 2-0 Vicryl suture for the platysma muscle, 2-0 Vicryl suture for the subcutaneous tissue, and 4-0 monocryl suture in a subcuticular skin closure. Glue was placed followed by application of a sterile dressing. The drain was hooked to bulb suction. A soft collar was applied. Patient was then sandwiched in the Andrea table and flipped into the prone position.? All areas impingement well-padded.? Patient was then prepped and draped in normal sterile fashion of the posterior cervical spine.? The skin incision was made midline down to the fascia retractors were placed and Bovie was used along with a Edwards to do subperiosteal dissection to the lateral masses of C2 down to C6.? ? Retractors then placed deeper. The fiducial for computer navigation was attached to the C6 spinous process. The clamp was placed on the proximal spinous process and later moved after the screw was placed. The the C-arm was brought in and spun on the patient information for the C-arm was then linked in the computer in order to facilitate placing the C2 pars screws. Next attention was brought to placing the C2 screws this was done using computer navigation. This done by using a high-speed bur followed by the computer navigated drill followed by placing the screw under computer navigation. These were size 24 screws were placed at C2. Next attention was brought to placing the lateral mass screws.? This was done by using the high-speed bur.? Drill followed by the pedicle probe and then placing 14 mm screws.? This was done at C3 bilaterally C4 bilaterally C5 bilaterally C6 bilaterally. Once the screws were all placed.? Attention was then brought to placing the rods.? Rods were placed from C2-C6 and caps were placed at each of the screws down from C2 down to c6.? At this time bilaterally and then torqued into position. Next attention was brought to performing the laminectomy.? Laminectomy started at C5.? This was done using the high-speed bur performing the laminectomy.? Then a Kerrison rongeur was brought in to perform the facetectomy of C5 and C6 medially this was done bilaterally.? Ligamentum flavum was taken out and the lamina was taken out completely along the spinous process. Next attention was brought to the C4 lamina high-speed bur was used to take down the C4 lamina bilaterally Kerrison rongeur was used to perform medial facetectomies and nerve roots were traced out the C4-5 foramen as well as around the C5 pedicle.? To be adequately decompressed millimeters of the facet joints were taken down bilaterally just to ensure that it was completely decompressed.? The dura was in good repair.? Neuro monitoring had improved since preoperatively. Patient was brought to the C 3 lamina this was taken down bilaterally with a high-speed bur. The ligament flavum was then taken down and the C3-4 facet was taken down medially with a curved curette and Kerrisons. The dura once all the lamina's were removed for was found to be in good repair Wound was then irrigated.? And then high-speed bur was used to decorticate the lateral gutters of the lateral masses and transverse processes from C3 down to T2 bilaterally.? Autograft was packed in the lateral gutters along with the osteoamp Deep drain placed on vancomycin powder and wound was closed in layered fashion closing the cervical fascia.? This was using 0 Vicryl and 2-0 Vicryl and skin closed with 2-0 Vicryl and Monocryl suture.? Sterile dressings were applied and patient was placed in cervical collar. The patient was then carefully returned to the supine position on his hospital bed where he was reversed and extubated and taken to the recovery room having tolerated the procedure well.
[2022-10-21] MEDS: HYDROmorphone 1 mg/mL INJ 1 mL 0.5 MG IVP (11:40)
[2022-10-21] MEDS: ketorolac 30 mg/mL INJ IVP ×2 (13:38→22:35)
[2022-10-21] MEDS: lactated ringers 1,000 ML 90 ML IV (13:39)
[2022-10-21] MEDS: HYDROcodone-acetaminophen 5-325 mg Tablet PO (14:38)
--- NOTE | 2022-10-21 15:50 | ANE.PACU2 ---
Inpatient post-anesthesia follow up: Airway intact: Yes Vital signs: Temperature 98.1 F Pulse Rate 103 Respiratory Rate 18 Blood Pressure 117/60 Pulse Oximetry 96 Oxygen Delivery Me thod Room Air Oxygen Flow Rate 6 Fraction of Inspir ed Oxygen Hydration adequate: Yes Nausea and vomiting: No Pain level: 3 Mental status: Baseline
[2022-10-21 17:26] LABS: Glucose Point of Care 266 mg/dL (70-110)
[2022-10-21] MEDS: insulin lispro 100 unit/1 mL SUBCUT (18:02)
[2022-10-21] MEDS: docusate sodium 100 mg Capsule PO (18:02)
[2022-10-21 20:37] LABS: Glucose Point of Care 277 mg/dL (70-110)
--- NOTE | 2022-10-21 21:39 | PC.NURSE ---
Mr. Nicholas refuses long acting insulin and stated he would not take any short acting insulin either. He states his blood sugars run around 270s at home and by the morning around 180. He wants to take his regular dose in the morning with breakfast. I will address this with the doc in the morning.
[2022-10-21] MEDS: acetaminophen 325 mg Tablet 650 MG PO (23:00)
[2022-10-22] VITALS: PULSE 105; O2SAT 94
[2022-10-22] MEDS: lactated ringers 1,000 ML 90 ML IV (00:57)
[2022-10-22 03:20] VITALS: BP 138/77; PULSE 104; RESP 18; TEMP 36.6; O2SAT 92
[2022-10-22] MEDS: HYDROcodone-acetaminophen 5-325 mg Tablet PO (05:58)
[2022-10-22] MEDS: ketorolac 30 mg/mL INJ IVP (06:00)
[2022-10-22] MEDS: ceFAZolin 2,000 MG in sodium chloride 0.9% (plus) 50 ML 100 MG IV (06:01)
[2022-10-22 07:01] LABS: Glucose Point of Care 189 mg/dL (70-110)
[2022-10-22 08:00] VITALS: BP 139/71; PULSE 101; O2SAT 95
--- NOTE | 2022-10-22 08:35 | P.DS_ITS ---
Discharge Providers Date of Admission: 10/21/22 11:34 Date of Discharge: October 22, 2022 Attending Provider at Admission: Eliot Rothman DO Attending Provider at Discharge: Eliot Rothman DO Primary Care Provider: Jerrica Velarde Reason for Visit Reason for Visit: ACDF,C4 corpectomy, C2-C6 posterior fusion, decomp Hospital Course Hospital Course Patient did well during his hospital stay pain is controlled. Patient had was difficulty Wallace. They are going to do a bladder scan and pain drops for to see if his LP on his own. If he is not able to we will keep the Wallace in and consult urology outpatient. Physical Exam Narrative: Patient doing well he is able to eat. At this point patient's pain is controlled we will plan on discharging today. Urinary Catheter Management: Latex Free: Cath Placed During This Visit: yes Reason for Continuing Indwelling Catheter: Required Immobilization for Trauma or Surgery or Anesthesia Urinary Catheter Date of Insertion: 10/21/22 Urinary Catheter Time of Insertion: 07:25 Discharge Data Studies Completed and Pending Pending at discharge Category Date Time Status C-arm Fluoroscopy 13742 Routine Exams 10/21/22 06:12 Taken XR cervical spine 3V* [id number] Routine Exams 10/21/22 10:51 Taken Laboratory Results WBC 6.7 10^3/uL (4.0-10.0) 10/21/22 06:35 RBC 5.36 10^6/uL (4.1-5.3) H 10/21/22 06:35 Hgb 15.3 g/dL (11.7-16.6) 10/21/22 06:35 Hct 45.3 % (42.0-52.0) 10/21/22 06:35 MCV 84.5 fl (80-94) 10/21/22 06:35 MCH 28.5 pg (28.0-34.0) 10/21/22 06:35 MCHC 33.8 g/dL (30.0-36.0) 10/21/22 06:35 RDW 13.2 % (12.1-15.1) 10/21/22 06:35 Plt Count 305 10^3/cmm (130-400) 10/21/22 06:35 MPV 10.5 fL (7.4-10.4) H 10/21/22 06:35 Neut % (Auto) 51.1 % 10/21/22 06:35 Lymph % (Auto) 35.8 % 10/21/22 06:35 Keith % (Auto) 8.4 % 10/21/22 06:35 Eos % (Auto) 3.2 % 10/21/22 06:35 Baso % (Auto) 1.2 % 10/21/22 06:35 Neut # (Auto) 3.40 10^3/uL (1.8-7.7) 10/21/22 06:35 Lymph # (Auto) 2.4 10^3/uL (0.8-4.8) 10/21/22 06:35 Keith # (Auto) 0.6 10^3/uL (0.2-0.9) 10/21/22 06:35 Eos # (Auto) 0.2 10^3/uL (0.0-0.8) 10/21/22 06:35 Baso # (Auto) 0.1 10^3/uL (0.0-0.1) 10/21/22 06:35 Nucleated RBC % (auto) 0 % 10/21/22 06:35 Nucleated RBCs # 0.0 /100WBC 10/21/22 06:35 Sodium 138 mmol/L (136-145) 10/21/22 06:35 Potassium 3.9 mmol/L (3.5-5.1) 10/21/22 06:35 Chloride 101 mmol/L (98-107) 10/21/22 06:35 Carbon Dioxide 25 mmol/L (22-29) 10/21/22 06:35 Anion Gap 15.9 (5-19) 10/21/22 06:35 BUN 12 mg/dL (8-23) 10/21/22 06:35 Creatinine 0.5 mg/dL (0.7-1.2) L 10/21/22 06:35 GFR Calculation 169.6 mL/min (90-130) H 10/21/22 06:35 Glucose 222 mg/dL (65-115) H 10/21/22 06:35 POC Glucose 189 mg/dL (70-110) H 10/22/22 06:19 Calculated Osmolality 293 mOsm/kg (285-295) 10/21/22 06:35 Calcium 9.7 mg/dL (8.5-10.5) 10/21/22 06:35 Vitals Last Vital Signs Temp 97.9 F 10/22/22 03:20 Pulse 104 H 10/22/22 03:20 Resp 18 10/22/22 03:20 BP 138/77 10/22/22 03:20 Pulse Ox 92 10/22/22 03:20 O2 Del Method 10/22/22 03:20 O2 Flow Rate 6 10/21/22 11:50 Discharge Plan Discharge Patient Disposition: Home Condition: Stable Prescriptions: New hydrocodone-acetaminophen 5-325 mg tablet 1 - 2 tab PO .Q4-6H Qty: 40 0RF Continued (DME) FreeStyle Ella 2 Sensor Kit See Rx Instructions .ROUTE .MEDSUPPLY Qty: 1 0RF Rx Instructions: change every 14 days ([facility]) FreeStyle Ella 2 [place] Misc See Rx Instructions .Route Qty: 1 0RF Rx Instructions: As directed ([facility]) CERVICAL COLLAR See Rx Instructions .Route .MEDSUPPLY Qty: 1 0RF Rx Instructions: As directed tramadol 50 mg tablet 50 mg PO Q4H PRN (Reason: Moderate Pain) Qty: 30 0RF (DME) insulin syringe-needle U-100 [BD Insulin Syringe Ultra-Fine] 0.3 mL 31 gauge x 5/16 syringe See Rx Instructions .Route Qty: 100 3RF Rx Instructions: As directed ([facility]) pen needle, diabetic [Comfort EZ Pen [place]] 31 gauge x 3/16 needle See Rx Instructions .Route Qty: 100 3RF Rx Instructions: As directed Humalog U-100 Insulin 100 unit/mL solution See Rx Instructions .ROUTE .COMPLEX Qty: 10 0RF Rx Instructions: BID with meals Glucose: 141-180 - 2 units 181-220 - 3 221-260 - 4 261-300 - 5 301-350 - 6 351-400 - 7 >400 - 8 units (DME) intraoperative Neuromonitoring See Rx Instructions .Route .MEDSUPPLY Qty: 1 0RF Rx Instructions: As directed ([facility]) Bone Growth Stimulator E0748 See Rx Instructions .ROUTE .MEDSUPPLY Qty: 1 0RF Rx Instructions: As directed chlorzoxazone 500 mg tablet 250 mg PO TID PRN (Reason: Muscle Spasm) insulin glargine-yfgn 100 unit/mL (3 mL) insulin pen 20 unit SUBCUT QPM Qty: 15 3RF dicyclomine 10 mg capsule 10 mg PO TID PRN (Reason: Acid Reflux) Discharge Orders: Discharge Order (Routine); Ordered 10/22/22 Ordered By: Eliot Rothman Discharge Diet: Advance as tolerated Discharge Activity: Limit activity as instructed Patient Instructions: Opioid Safety Activity Restrictions/Additional Instructions: Thank you for choosing [facility] for your care! The following is a list of instructions, from your provider, to follow upon your discharge to ensure you have the optimal recovery from your recent injury or surgery. Anterior Cervical Discectomy and Fusion: What to Expect at Home Your Recovery Follow-up care is a reid part of your treatment and safety. Be sure to make and go to all appointments, and call your doctor if you are having problems. If you do not already have a follow-up appointment made, call office in the n ext 1-3 days to make follow up appointment for 1 week at [phone]. It is also a good idea to know your test results and keep a list of the medicines you take. You can expect your neck to feel stiff or sore after surgery. This should improve in the weeks after surgery. But it may take 4 to 6 months for you to get better completely. You may have trouble sitting or standing in one position for very long and may need pain medicine in the weeks after your surgery. It may take 4 to 6 weeks to get back to your usual activities, but it may depend on what kind of surgery you had. Your throat will feel sore and it may be difficult to swallow for the first 3 days after your surgery. As long as you can get liquids down without difficulty, this should slowly improve, otherwise call our office or seek medical attention if it becomes increasingly difficult to get anything down including liquids. Avoid hot liquids for first 3-5 days. Soothing foods/liquids such as jello, pudding, and luke warm soups are recommended until swallowing improves. Staying elevated will also help, it's advised you keep propped up at while sleeping to help reduce the swelling. You may use an ice pack directly on your incision or around it on the front of your neck, using a cloth to protect your skin; and a heating pad to the back of your neck as needed. Do not use over the counter anti-inflammatory medications (Ibuprofen, Motrin, Aleve, Advil, etc) Taking these meds after having a fusion can delay fusion rates, we recommend you avoid them for the first 3 [address] your surgery[address] Dr. Rothman may advise you to work with a physical therapist to strengthen the muscles around your neck and back - this will be discussed at your follow - up appointments. The pain or numbness you were having in your arms before surgery should get better or go away completely. This care sheet gives you a general idea about how long it will take for you to recover. But each person recovers at a different pace. Follow the steps below to get better as quickly as possible. How can you care for yourself at home? Activity ? Rest when you feel tired. Getting enough sleep will help you recover. ? Try to walk each day. Start by walking a little more than you did the day before. Bit by bit, increase the amount you walk. Walking boosts blood flow and helps prevent pneumonia and constipation. Walking may also decrease your muscle soreness after surgery. ? No lifting anything that is more that 5 pounds. This may include heavy grocery bags and milk containers, a heavy briefcase or backpack, cat lit ter or dog food bags, a child, or a vacuum bobbin cleaner. ? Avoid strenuous activities, such as bicycle riding, jogging, weightlifting, or aerobic exercise, until your doctor says it is okay. ? Do not drive until your follow-up visit after your surgery, or until your doctor says it isokay. ? Avoid taking long car trips for 2 to 4 weeks after surgery. Your neck may become tired and painful from sitting too long in one position. ? You will probably need to take 4 to 6 weeks off from work. It depends on the type of work you do and how you feel. ? You may have sex as soon as you feel able, but avoid positions that put stress on your neck or cause pain. Diet ? You can eat your normal diet. If your stomach is upset, try bland, low-fat foods like plain rice, broiled chicken, toast, and yogurt ? Drink plenty of fluids. If you have kidney, heart, or liver disease and have to limit fluids, talk with your doctor before you increase the amount of fluids you drink. ? You may notice that your bowel movements are not regular right after your surgery. This is common. Try to avoid constipation and straining with bowel movements. You may want to take a fiber supplement every day. If you have not had a bowel movement after a couple of days, ask your doctor about taking a mild laxative. Medicines ? Take pain medicines exactly as directed. 1. If Dr. Rothman gave you a prescription medicine for pain, take lt as prescribed. 2. Do not take two or more pain medicines at the same time unless the doctor told you to. Many pain medicines have acetaminophen, which is Tylenol. Too much acetaminophen {Tylenol) can be harmful. 3. If you think your pain pill is making you sick to your stomach: 4. Take your pills after meals (unless your doctor has told you not to). 5. Ask your Dr. for a different pain pill. Incisioncare ? Remove your dressing 48hours after your surgery. Ok to shower and get the incision wet. Do not overtly wash your incision. When done, pad dry, leave open to air thereafter. Avoid creams and ointments directly on your incision. ? Your sutures in the incision will dissolve and fall out on their own. ? Keep the area clean and dry. You may cover it with a gauze bandage if it weeps or rubs against clothing; if you choose to do this, change the dressing everyday. Other instructions ? Use a heating pad, hot water bottle, or gentle massage on your back to reduce stiffness. Avoid putting heat on your incision When should you call for help? ? Call 911 anytime you think you may need emergency care. For example, call if: ? You pass out (lose consciousness). ? You have sudden chest pain and shortness of breath, or you cough upblood. ? You cannot swallow. ? You have severe pain in your neck or back. ? Call your Dr. or seek immediate medical care if: ? You have pain that does not get better after you take pain pills. ? You have loose stitches, or your incision comes open. ? You have blood or fluid draining from the incision. ? You have signs of infection, such as: 1. Increased pain, swelling, warmth, or redness. 2. Red streaks leading from the site. 3. Pus draining from the site. 4. Swollen lymph nodes in your neck or armpits. 5. A fever. ? You have severe pain in your arms. ? You have new or increased weakness or numbness in your arms. ? Watch closely for any changes in your health, and be sure to contact your doctor if: ? You do not have a bowel movement after taking a laxative. Discharge Attestations Time Spent in Discharge Care*: less than 30 min Quality Metrics Clinical Quality Measures [ No reported AMI, CVA or VTE this stay] Coding Level of Care Code Acute Code for Chg Fwd
[2022-10-22] MEDS: docusate sodium 100 mg Capsule PO (10:52)
--- NOTE | 2022-10-22 11:41 | PC.NURSE ---
1015 González vac drains removed anterior and posterior neck. patient fiona well.
[2022-10-22 12:00] VITALS: BP 126/77; PULSE 96; RESP 17; O2SAT 98
[2022-10-22 13:01] LABS: Glucose Point of Care 260 mg/dL (70-110)
--- NOTE | 2022-10-22 14:24 | PC.NURSE ---
1150 Discharge instructions given to patient and family all voiced understanding 1200 patient discharged to home with family patient in stable condition
== END 2022-10-22 12:00 | disposition home health service (06) | DRG 472 ==
LOC: MEDSURG 11:35
PROVIDERS: Physician Assistant; Admitting Provider Orthopaedic Surgery; PCP Physician Assistant; Visit Provider Orthopaedic Surgery
PROC: 0RB30ZZ Excision of Cervical Vertebral Disc, Open Approach (ICD-10-PCS; CPT 22551; principal; 2022-10-21 07:00)
PROC: 0RG2070 Fusion of 2 or more Cervical Vertebral Joints with Autologous Tissue Substitute, Anterior Approach, Anterior Column, Open Approach (ICD-10-PCS; CPT 22600; 2022-10-21 07:00)
PROC: 0RG2070 Fusion of 2 or more Cervical Vertebral Joints with Autologous Tissue Substitute, Anterior Approach, Anterior Column, Open Approach (ICD-10-PCS; CPT 63001; 2022-10-21 07:00)
DX: M48.02 Spinal stenosis, cervical region (principal); G99.2 Myelopathy in diseases classified elsewhere; E11.9 Type 2 diabetes mellitus without complications; M48.062 Spinal stenosis, lumbar region with neurogenic claudication; Z79.4 Long term (current) use of insulin; Z79.891 Long term (current) use of opiate analgesic
CPT/HCPCS: 36415; 36416; 51702; 72020; 72040; 76000; 80048; 82962; 85025; 96372; 97110; 97116; 97161; 97530; C1713; C9359; J0330; J0690; J1100; J1170; J1200; J1815; J1885; J2250; J2310; J2405; J2704; J3010; J3370; J7030; J7120; P9045